=== PATIENT | female | born 1955 ===

== ENCOUNTER 2023-09-16 11:01 | Outpatient (CLI) | payer MEDICARE, SELFPAY | END 2023-09-16 11:02 | disposition home or self-care (01) | LOC: NFLDREF 09-17 04:35 | PROVIDERS: Visit Provider Nurse Practitioner Family | DX: N30.01 Acute cystitis with hematuria (principal); B37.9 Candidiasis, unspecified; T36.95XA Adverse effect of unspecified systemic antibiotic, initial encounter | CPT/HCPCS: 87086; 87186 ==